=== PATIENT | female | born 1965 | race African-American/Black ===

== ENCOUNTER 2022-09-17 10:18 | Emergency (ER) | payer MEDICAID ==
[~2022-09-17] VITALS: Ht 165.1 cm; Wt 117.0 kg
[2022-09-17] MEDS ORDERED: ACETAMINOPHEN 325MG TABLET PO ONE (11:15)
[2022-09-17] MEDS ORDERED: IBUPROFEN 400MG TABLET PO ONE (11:15)
[2022-09-17] MEDS ORDERED: METHOCARBAMOL 750MG TABLET PO SCH (11:15)
[2022-09-17 11:42] LABS: BASOPHILS % 0.7 % (0.0-2.0); HEMOGLOBIN. 13.8 g/dL (12.0-16.0); LYMPHOCYTES % 25.1 % (20.0-50.0); MEAN CORPUSCULAR HEMOGLOBIN 28.8 pg (28.0-32.0); MEAN CORPUSCULAR VOLUME 87.6 fL (81.0-99.0); MONOCYTES % 7.9 % (2.0-8.0); NEUTROPHILS % 63.3 % (40.0-76.0); PLATELET 290 x1000/uL (130-400)
[2022-09-17 11:51] LABS: CHLORIDE 110 mEq/L (98-107)
[2022-09-17] MEDS ORDERED: TOPUD PO (12:13)
[2022-09-17] MEDS ORDERED: METH-653 MT (12:13)
[2022-09-17] MEDS ORDERED: IBUP-2028 MT (12:13)
[2022-09-17] MEDS ORDERED: GUAI237L83 MT (12:13)
[2022-09-17 13:01] VITALS: BP 132/78
== END 2022-09-17 13:02 | disposition home or self-care (01) ==
LOC: ER 10:18
DX: M62.838 Other muscle spasm (principal); R05.9 Cough, unspecified; F17.200 Nicotine dependence, unspecified, uncomplicated
CPT/HCPCS: 36415; 71045; 80053; 85025; 99284